=== PATIENT | female | born 1975 | race African-American/Black ===

== ENCOUNTER 2016-09-10 08:18 | Emergency (ER) | payer SELFPAY ==
[~2016-09-10] VITALS: Ht 154.9 cm; Wt 63.5 kg
[2016-09-10 08:45] VITALS: BP 122/82
[2016-09-10] MEDS ORDERED: Metoclopramide 10mg/2ml Inj IM ONE (08:45)
[2016-09-10] MEDS ORDERED: Ondansetron ODT 8mg tab ORAL ONE (08:45)
--- NOTE | 2016-09-10 10:03 | Emergency Room Report ---
History of Present Illness General Chief Complaint: Vomiting Source: Patient Present Illness HPI 41YOF walk-in with 2-3 days nausea/vomiting without abd pain. Started after "my whole family had hamburgers." Tolerating PO - Gatorade - currently. Patient drove herself, walked into ER from parking lot. Previous tubal ligation No sick contacts Didnt take any OTC meds Allergies: Coded Allergies: No Known Allergies (Unverified , 09/10/16) Patient History Past Medical History: none Past Surgical History: other - "tubes tied" Pertinent Family History: none Social History: Denies: alcohol use, drug use, smoking Last Menstrual Period: 08/10/16 Now: No Nursing Documentation-[facility] Past Medical History: No Stated History Review of Systems All Other Systems: negative except mentioned in HPI Physical Exam Vital Signs Date Time Temp Pulse Resp B/P Pulse Ox O2 Delivery O2 Flow Rate FiO2 09/10/16 08:27 98.2 62 15 122/82 99 Room Air Sp02 EP Interpretation: reviewed, normal General Appearance: normal inspection, well appearing, no apparent distress, alert, GCS 15, non-toxic Head: normocephalic, atraumatic Eyes: bilateral eye EOMI, bilateral eye PERRL ENT: normal ENT inspection, hearing grossly normal, normal voice Neck: normal inspection, full range of motion, supple, no bony tend Respiratory: normal inspection, lungs clear, normal breath sounds, no respiratory distress, no retraction, no wheezing Cardiovascular #1: regular rate, rhythm, no edema Gastrointestinal: normal inspection, normal bowel sounds, non tender, soft, no guarding, no hernia Genitourinary: no CVA tenderness Musculoskeletal: normal inspection, back normal, normal range of motion, Royce' s Sign negative Neurologic: normal inspection, alert, oriented x3, responsive, billet sawyer III-XII nml as tested, motor strength/tone normal, speech normal Psychiatric: normal inspection, judgement/insight normal, mood/affect normal Skin: normal inspection, normal color, no rash Lymphatic: normal inspection Medical Decision Making Diagnostic Impression: Primary Impression: Nausea & vomiting Qualified Codes: R11.2 - Nausea with vomiting, unspecified ER Course Nausea and vomiting - 3 days - VSS. Afebrile. - Abdomen grossly non-focal - Patient refused to give urine for urine preg, UA - Gave GI cocktail - Patient felt better but refused to wait for DC instructions, Rx - Was upset she "didnt get an IV" even though I explained to her that with normal vitals, and non-tender abdomen, and her history, likely viral gastroenteritis and she was already tolerating PO - Advised PMD followup as needed Last Vital Signs Date Time Temp Pulse Resp B/P Pulse Ox O2 Delivery O2 Flow Rate FiO2 09/10/16 08:45 98.2 15 122/82 99 Room Air 09/10/16 08:27 62 Status: improved Disposition: HOME, SELF-CARE Referrals: NON PHYSICIAN (PCP) AMI ACE M.D. Sep 10, 2016 10:03
[2016-09-10 10:09] VITALS: BP 116/78
== END 2016-09-10 10:00 | disposition home or self-care (01) ==
LOC: EMR 09:00
DX: R11.2 Nausea with vomiting, unspecified (principal)
CPT/HCPCS: 96372; 99283; J2765; Q0162